=== PATIENT | female | born 1955 | race Caucasian/White ===

== ENCOUNTER → 2016-07-08 | Outpatient (CLI) | payer BC ==
[~2016-07-08] MED LIST: ATOR10TA66 PO; CATHETER FLUSH 10 ML SYR IV PRN; CIPR500T4 PO; HYDR-3812 PO; IOHEXOL 350 MG/ML 100 ML (OMNIPAQUE 350) VIAL IV ONE; NS 100 ML (IVPB) BAG IV ONE
--- OUTSIDE RECORDS SUMMARY | 2016-07-08 11:41 | XMS REPORT | Continuity of Care Document ---
Author Author [facility] Organization [facility] Address Unknown Phone Unavailable Allergies Active Description Code Type Severity Reaction Onset Reported/Identified Relationship to Patient Clinical Status Yes Penicillins [id number] Drug Allergy Unknown N/A 06/03/2015 Medications Problems Date Dx Coded Attending Type Code Diagnosis Diagnosed By 06/03/2015 PORSHA PARDO MD Ot K57.90 DVRTCLOS OF INTEST, PART UNSP, W/O PERF 06/03/2015 PORSHA PARDO MD Ot N13.2 HYDRONEPHROSIS WITH RENAL AND URETERAL C 06/03/2015 PORSHA PARDO MD Ot N28.9 DISORDER OF KIDNEY AND URETER, UNSPECIFI 11/24/2015 PORSHA PARDO MD Ot K57.90 DVRTCLOS OF INTEST, PART UNSP, W/O PERF 11/24/2015 PORSHA PARDO MD Ot N13.2 HYDRONEPHROSIS WITH RENAL AND URETERAL C 11/24/2015 PORSHA PARDO MD Ot N28.9 DISORDER OF KIDNEY AND URETER, UNSPECIFI 12/24/2015 DEREJE LUQUE MD Ot 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 Visit Date/Time Discharge Status Pt. Type Provider Facility Loc./Unit Complaint [id number] 06/03/2015 04:51:00 2015 06:24:00 DIS Emergency PORSHA PARDO MD [facility] ER LEFT SIDE BACK PAIN [id number] 07/08/2016 11:36:00 ACT Outpatient DEREJE LUQUE MD [facility] RAD BILAT AML,H/O STONES [id number] 12/22/2015 11:52:00 ACT Outpatient DEREJE LUQUE MD [facility] RAD BILATERAL AML
[2016-07-08 12:13] LABS: BLOOD UREA NITROGEN 17 MG/DL (7-18); BUN/CREATININE RATIO 22; CREATININE SERUM 0.76 MG/DL (0.60-1.30); GFR ESTIMATED > 60
--- NOTE | 2016-07-08 15:30 | Diagnostic Imaging Report ---
PROCEDURE: CT abdomen with and without contrast. TECHNIQUE: Multiple contiguous axial CT images of the abdomen were obtained prior to and after intravenous administration of iodinated contrast. INDICATION: Bilateral AML followup. History of stones. 100 mL of Omnipaque 350 is administered intravenously. FINDINGS: The lung bases appear clear. The liver, the gallbladder, the spleen, the pancreas, and the adrenal glands appear unremarkable. The kidneys have symmetric enhancement and contrast excretion. There is no hydronephrosis. The unenhanced phase demonstrate no kidney stones. There is a partially exophytic fat-containing mass in the right kidney measuring 1.6 cm in maximum dimension similar to 12/22/2015. In the left kidney, fat-containing lesion is also noted measuring 0.8 cm and is also unchanged. There are no other lesions identified. Again seen prominent enhancing component within the right renal mass mentioned above. The abdominal aorta is normal in caliber. No para-aortic significantly enlarged lymph nodes seen. The osseous structures appear grossly unremarkable. IMPRESSION: Stable bilateral fat-containing renal masses measuring 1.6 cm on the right and 0.8 cm in the left kidney suggestive of angiomyolipomas. A followup study in 12 months is suggested to recommend further stability given the enhancing components. Dictated by: Dictated on workstation # [id number]
== END ==
LOC: RAD 11:36
PROVIDERS: ATTEND Urology
DX: D17.71 Benign lipomatous neoplasm of kidney (principal)
CPT/HCPCS: 36415; 74170; 82565; 84520

== ENCOUNTER → 2016-10-27 | Outpatient (CLI) | payer BC ==
[~2016-10-27] MED LIST changes: -CATHETER FLUSH 10 ML SYR IV PRN; -IOHEXOL 350 MG/ML 100 ML (OMNIPAQUE 350) VIAL IV ONE; -NS 100 ML (IVPB) BAG IV ONE
--- NOTE | 2016-11-01 18:59 | Diagnostic Imaging Report ---
Bilateral screening mammogram. The current study was also evaluated with a Computer Aided Detection (CAD) system. INDICATION: Screening. No current complaints stated on the questionnaire. COMPARISON: 11/04/15 FINDINGS: The breasts are composed of heterogeneously dense parenchyma which may decrease mammographic sensitivity. No mass, architectural distortion or suspicious cluster of calcification is identified. Allowing for technique and positional differences, no suspicious change is seen. IMPRESSION: Dense breasts with no definite change. ACR BI-RADS Category 2: Benign findings. Result letter will be mailed to the patient. Note: At least 10% of breast cancer is not imaged by mammography. Dictated by: Dictated on workstation # [id number]
== END ==
LOC: RAD 09:39
PROVIDERS: ATTEND Nurse Practitioner Family
DX: Z12.31 Encounter for screening mammogram for malignant neoplasm of breast (principal)
CPT/HCPCS: 77067

== ENCOUNTER → 2017-07-26 | Outpatient (CLI) | payer BC ==
[~2017-07-26] MED LIST changes: +ACHD5005 PO; -HYDR-3812 PO
--- NOTE | 2017-07-26 16:47 | Diagnostic Imaging Report ---
PROCEDURE: CT abdomen and pelvis without contrast. TECHNIQUE: Multiple contiguous axial images were obtained through the abdomen and pelvis without the use of intravenous contrast. INDICATION: History of kidney stone. COMPARISON: Comparison with 07/08/2016. FINDINGS: Noncontrasted images show the lung bases to be clear. The kidneys show no evidence of calculi. No evidence of hydronephrosis. Complex fatty lesion off the cortex of the inferior portion of the right kidney is unchanged. Cyst off the cortex of the left kidney is also unchanged. Ureters are not distended. Bladder is decompressed. There are no calculi seen in the pelvis or bladder. There are multiple phleboliths. Liver appears normal. Gallbladder is normal. Bile ducts are not dilated. Pancreas and spleen are normal. Adrenal glands normal. Stomach appears normal. The small bowel is not distended. Colon shows normal stool and gas pattern. Appendix is normal. There is diverticulosis without evidence of diverticulitis. There are no pelvic masses. No bony lesion. IMPRESSION: 1. No evidence of renal calculi or obstruction. 2. Fatty cortical mass off the lower pole of the right kidney is stable likely representing angiomyolipoma. 3. The remainder of the abdomen appears normal. Dictated by: Dictated on workstation # [id number]
== END ==
LOC: RAD 14:08
PROVIDERS: ATTEND Urology
DX: D17.71 Benign lipomatous neoplasm of kidney (principal); Z87.442 Personal history of urinary calculi
CPT/HCPCS: 74176

== ENCOUNTER → 2018-10-17 | Outpatient (CLI) | payer MEDICARE ==
--- NOTE | 2018-10-17 14:38 | Diagnostic Imaging Report ---
PROCEDURE: CT abdomen and pelvis without contrast. TECHNIQUE: Multiple contiguous axial images were obtained through the abdomen and pelvis without the use of intravenous contrast. Auto Exposure Controls were utilized during the CT exam to meet ALARA standards for radiation dose reduction. INDICATION: Bilateral renal stones and right renal angiomyolipoma. Study is performed for followup. COMPARISON: Comparison is made with prior CT from 07/26/2017. FINDINGS: The lung bases are clear. No discrete liver mass is detected. The gallbladder is unremarkable. No biliary ductal dilatation is seen. The pancreas and spleen are unremarkable. No adrenal mass is detected. No renal calculi or evidence of hydronephrosis is seen. The mixed density cortical lesion in the lower pole of the right kidney is stable at approximately 15 mm. Tiny low-density cortical lesion in the left kidney is stable at approximately 6 mm. These may represent fatty lesions such as angiomyolipomas. Aorta is nonaneurysmal. The bowel loops are normal in caliber. Appendix is unremarkable. There is no ascites. Bladder is decompressed. IMPRESSION: 1. No evidence of nephrolithiasis or hydronephrosis. 2. Stable fatty cortical renal lesion, suggestive of angiomyolipoma when compared with prior examination from 07/26/2017. Dictated by: Dictated on workstation # [id number]
== END ==
LOC: RAD 14:06
PROVIDERS: ATTEND Urology
DX: D17.71 Benign lipomatous neoplasm of kidney (principal); N28.9 Disorder of kidney and ureter, unspecified
CPT/HCPCS: 74176

== ENCOUNTER 2018-12-06 05:37 | Outpatient (CLI) | payer MEDICARE ==
[~2018-12-06] VITALS: Ht 162.6 cm; Wt 57.2 kg
[2018-12-07] MEDS ORDERED: CHOL2000 PO (11:45)
[2018-12-07] MEDS ORDERED: ATOR10TA66 PO (11:45)
== END 2018-12-07 11:50 | disposition home or self-care (01) ==
LOC: PREOP 05:37
PROVIDERS: ATTEND Specialist
DX: Z01.818 Encounter for other preprocedural examination (principal)

== ENCOUNTER 2018-12-08 06:14 | Day surgery (SDC) | payer MEDICARE ==
[~2018-12-08] VITALS: Ht 162.6 cm; Wt 57.2 kg
[~2018-12-08 06:14] MED LIST changes: +CHOL2000 PO
[2018-12-08] MEDS ORDERED: TIMOLOL MALEATE 0.5% 5 ML (TIMOPTIC) BTL OU PRN (06:30)
[2018-12-08] MEDS ORDERED: LIDOCAINE PF 1% 2 ML AMP IR PRN (06:30)
[2018-12-08] MEDS ORDERED: POVIDONE (BETADINE) OPHTH SOLN 5% 30 ML OP ONE (06:30)
[2018-12-08] MEDS ORDERED: MOXIFLOXACIN OPHTH SOLN 5 MG/ML 0.3 ML SYRINGE OP ONE (06:30)
[2018-12-08 06:40] VITALS: BP 145/71
[2018-12-08] MEDS: TETRACAINE 0.5% OPHTH SOLN 4 ML BTL (SINGLE DOSE ONLY) OU PRN ×4 (06:49→07:10)
[2018-12-08] MEDS: CYCLOPENTOLATE 1% (CYCLOGYL) 2 ML DROPS OP SCH ×3 (06:59→07:10)
[2018-12-08] MEDS: PHENYLEPHRINE 10% OPHTH (NEO-SYN) 5 ML BTL OU SCH ×3 (06:59→07:10)
--- NOTE | 2018-12-08 07:03 | Ophthalmologist Pre-Op Note ---
Pre-Operative Progress Note H&P Reviewed The H&P was reviewed, patient examined and no changes noted. Date H&P Reviewed: Dec 08, 2018 Time H&P Reviewed: 07:03 Pre-Op Dx Cataract, Left Eye MICHAEL CASTILLO MD Dec 08, 2018 07:03
--- NOTE | 2018-12-08 07:24 | Ophthalmology Operative Report ---
Cataract removal/placement IOL PREOPERATIVE DIAGNOSIS: Cataract Left Eye POSTOPERATIVE DIAGNOSIS: Cataract Left Eye PROCEDURE: Cataract removal and placement of posterior chamber implant, left eye SURGEON: Ronnie Castillo ANESTHESIA: Topical with sedation COMPLICATIONS: None ESTIMATED BLOOD LOSS: Minimal DESCRIPTION OF PROCEDURE: After proper informed consent was obtained, the patient, a 63 female, was taken to the Operating Room and the left eye was anesthetized with tetracaine. The left eye was then prepped and draped in the usual manner. A wire lid speculum was placed. A paracentesis was made at the left hand position. Preservative free lidocaine was injected into the anterior chamber followed by viscoelastic. A clear corneal incision was made in the temporal position. A capsulorrhexis was preformed and the central nuclear and cortical material were removed. The posterior capsule was polished and an Zenon [id number] was placed into the capsular bag. The residual viscoelastic was aspirated and balanced saline solution was injected into the anterior chamber. Moxifloxacin was injected into the anterior chamber.20.5 The wound was checked and found to be water tight. The patient tolerated the procedure well without complications. RONNIE CASTILLO MD Dec 08, 2018 07:24
[2018-12-08] MEDS ORDERED: MIDAZOLAM 2 MG/2 ML (VERSED) VIAL ONE (07:49)
--- NOTE | 2018-12-08 07:53 | Ophthalmologist Pre-Op Note ---
Pre-Operative Progress Note H&P Reviewed The H&P was reviewed, patient examined and no changes noted. Date H&P Reviewed: Dec 08, 2018 Time H&P Reviewed: 07:53 Pre-Op Dx Cataract, Right Eye MICHAEL CASTILLO MD Dec 08, 2018 07:53
[2018-12-08] MEDS ORDERED: acetaZOLAMIDE ER 500 MG CAP (DIAMOX SEQUELS) PO ONE (08:00)
--- NOTE | 2018-12-08 08:12 | Ophthalmology Operative Report ---
Cataract removal/placement IOL PREOPERATIVE DIAGNOSIS: Cataract Right Eye POSTOPERATIVE DIAGNOSIS: Cataract Right Eye PROCEDURE: Cataract removal and placement of posterior chamber implant, right eye SURGEON: Ronnie Castillo ANESTHESIA: Topical with sedation COMPLICATIONS: None ESTIMATED BLOOD LOSS: Minimal DESCRIPTION OF PROCEDURE: After proper informed consent was obtained, the patient, a 63 female, was taken to the Operating Room and the right eye was anesthetized with tetracaine. The right eye was then prepped and draped in the usual manner. A wire lid speculum was placed. A paracentesis was made at the left hand position. Preservative free lidocaine was injected into the anterior chamber followed by viscoelastic. A clear corneal incision was made in the temporal position. A capsulorrhexis was preformed and the central nuclear and cortical material were removed. The posterior capsule was polished and Zenon 18.0 AU00T0 IOL was placed into the capsular bag. The residual viscoelastic was aspirated and balanced saline solution was injected into the anterior chamber. Moxifloxacin was injected into the anterior chamber. The wound was checked and found to be water tight. The patient tolerated the procedure well without complications. RONNIE CASTILLO MD Dec 08, 2018 08:12
[2018-12-08 08:25] VITALS: BP 135/89
--- NOTE | 2018-12-08 14:31 | Anesthesia-General Post-Op ---
MAC Patient Condition Mental Status/LOC: Same as Preop Cardiovascular: Satisfactory Nausea/Vomiting: Absent Respiratory: Satisfactory Pain: Controlled Complications: Absent Post Op Complications Complications None Follow Up Care/Instructions Patient Instructions None needed. Anesthesiology Discharge Order Discharge Order Patient is doing well, no complaints, stable vital signs, no apparent adverse anesthesia problems. No complications reported per nursing. MARCELLA CAM CRNA Dec 08, 2018 14:31
== END 2018-12-08 08:25 | disposition home or self-care (01) ==
LOC: SDC 06:14
PROVIDERS: ATTEND Specialist
DX: H25.11 Age-related nuclear cataract, right eye (principal); Z80.1 Family history of malignant neoplasm of trachea, bronchus and lung; Z80.52 Family history of malignant neoplasm of bladder; E78.00 Pure hypercholesterolemia, unspecified; Z85.828 Personal history of other malignant neoplasm of skin; Z79.899 Other long term (current) drug therapy

== ENCOUNTER 2018-12-26 05:39 | Outpatient (CLI) | payer MEDICARE ==
[~2018-12-26] VITALS: Ht 162.6 cm; Wt 57.2 kg
== END 2018-12-26 14:05 ==
LOC: PREOP 05:39
PROVIDERS: ATTEND Specialist
DX: Z01.818 Encounter for other preprocedural examination (principal); H25.89 Other age-related cataract; Z83.3 Family history of diabetes mellitus; Z80.8 Family history of malignant neoplasm of other organs or systems

== ENCOUNTER 2018-12-29 06:26 | Day surgery (SDC) | payer MEDICARE ==
[~2018-12-29] VITALS: Ht 162.6 cm; Wt 57.2 kg
[2018-12-29 06:30] VITALS: BP 134/74
[2018-12-29] MEDS ORDERED: MOXIFLOXACIN OPHTH SOLN 5 MG/ML 0.3 ML SYRINGE OP ONE (06:45)
[2018-12-29] MEDS ORDERED: LIDOCAINE PF 1% 2 ML AMP IR PRN (06:45)
[2018-12-29] MEDS ORDERED: POVIDONE (BETADINE) OPHTH SOLN 5% 30 ML OP ONE (06:45)
[2018-12-29] MEDS ORDERED: TIMOLOL MALEATE 0.5% 5 ML (TIMOPTIC) BTL OU PRN (06:45)
[2018-12-29] MEDS: TETRACAINE 0.5% OPHTH SOLN 4 ML BTL (SINGLE DOSE ONLY) OU PRN ×4 (06:55→07:18)
[2018-12-29] MEDS ORDERED: MIDAZOLAM 2 MG/2 ML (VERSED) VIAL ONE (07:01)
[2018-12-29] MEDS: PHENYLEPHRINE 10% OPHTH (NEO-SYN) 5 ML BTL OU SCH ×3 (07:07→07:18)
[2018-12-29] MEDS: CYCLOPENTOLATE 1% (CYCLOGYL) 2 ML DROPS OP SCH ×3 (07:07→07:18)
--- NOTE | 2018-12-29 07:47 | Ophthalmologist Pre-Op Note ---
Pre-Operative Progress Note H&P Reviewed The H&P was reviewed, patient examined and no changes noted. Date H&P Reviewed: Dec 29, 2018 Time H&P Reviewed: 07:47 Pre-Op Dx Cataract, Left Eye MICHAEL CASTILLO MD Dec 29, 2018 07:47
[2018-12-29] MEDS ORDERED: acetaZOLAMIDE ER 500 MG CAP (DIAMOX SEQUELS) PO ONE (08:00)
--- NOTE | 2018-12-29 08:16 | Ophthalmology Operative Report ---
Cataract removal/placement IOL PREOPERATIVE DIAGNOSIS: Cataract Left Eye POSTOPERATIVE DIAGNOSIS: Cataract Left Eye PROCEDURE: Cataract removal and placement of posterior chamber implant, left eye SURGEON: Ronnie Castillo ANESTHESIA: Topical with sedation COMPLICATIONS: None ESTIMATED BLOOD LOSS: Minimal DESCRIPTION OF PROCEDURE: After proper informed consent was obtained, the patient, a 63 female, was taken to the Operating Room and the left eye was anesthetized with tetracaine. The left eye was then prepped and draped in the usual manner. A wire lid speculum was placed. A paracentesis was made at the left hand position. Preservative free lidocaine was injected into the anterior chamber followed by viscoelastic. A clear corneal incision was made in the temporal position. A capsulorrhexis was preformed and the central nuclear and cortical material were removed. The posterior capsule was polished and an Zenon 17.5 AU00T0 was placed into the capsular bag. The residual viscoelastic was aspirated and balanced saline solution was injected into the anterior chamber. Moxifloxacin was injected into the anterior chamber. The wound was checked and found to be water tight. The patient tolerated the procedure well without complications. RONNIE CASTILLO MD Dec 29, 2018 08:16
[2018-12-29 08:28] VITALS: BP 119/58
--- NOTE | 2018-12-29 12:51 | Anesthesia-General Post-Op ---
MAC Patient Condition Mental Status/LOC: Same as Preop Cardiovascular: Satisfactory Nausea/Vomiting: Absent Respiratory: Satisfactory Pain: Controlled Complications: Absent Post Op Complications Complications None Follow Up Care/Instructions Patient Instructions None needed. Anesthesiology Discharge Order Discharge Order Patient was seen after the procedure and she was doing well, no complaints, stable vital signs, no apparent adverse anesthesia problems. CHRISTIAN GARLAND DO Dec 29, 2018 12:51
== END 2018-12-29 08:28 | disposition home or self-care (01) ==
LOC: SDC 06:26
PROVIDERS: ATTEND Specialist
DX: H25.12 Age-related nuclear cataract, left eye (principal); E78.5 Hyperlipidemia, unspecified; E78.00 Pure hypercholesterolemia, unspecified; C44.90 Unspecified malignant neoplasm of skin, unspecified; N20.0 Calculus of kidney; F32.9 Major depressive disorder, single episode, unspecified; Z88.0 Allergy status to penicillin; Z79.899 Other long term (current) drug therapy; Z83.3 Family history of diabetes mellitus; Z80.1 Family history of malignant neoplasm of trachea, bronchus and lung; Z80.52 Family history of malignant neoplasm of bladder

== ENCOUNTER → 2019-10-22 | Outpatient (CLI) | payer MEDICARE ==
--- NOTE | 2019-10-22 12:25 | Diagnostic Imaging Report ---
PROCEDURE: CT urinary tract, rule out kidney stone. TECHNIQUE: Multiple contiguous axial images were obtained through the abdomen and pelvis without the use of intravenous contrast. Auto Exposure Controls were utilized during the CT exam to meet ALARA standards for radiation dose reduction. INDICATION: Bilateral renal stones. Correlation is made with prior CT from 10/17/2018. Lung bases remain clear. The liver is unremarkable. Gallbladder appears to be contracted. No biliary duct dilatation is detected. The pancreas and spleen are unremarkable. No adrenal mass is detected. A mixed density cortical lesion lower pole right kidney is stable at 15 mm. Fatty lesion in the mid to upper pole left kidney is approximately 7 to 8 mm compared with 6 mm. No calculi are detected. Is no hydronephrosis. No ureteral or bladder calculi are detected. Aorta is non-aneurysmal. Bowel loops are unremarkable. Appendix is visualized and unremarkable. There is no obstruction. No free fluid or fluid collection is seen. The uterus is unremarkable. The bony structures and nonacute. IMPRESSION: 1. No evidence of nephrolithiasis or hydronephrosis. 2. Stable mixed density right renal cortical lesion since one year earlier. The left cortical low-density lesion may be minimally larger however this remains most consistent with an angiomyolipoma. Continued follow-up is recommended. Dictated by: Dictated on workstation # [id number]
== END ==
LOC: RAD 11:45
PROVIDERS: ATTEND Urology
DX: N20.0 Calculus of kidney (principal); N28.9 Disorder of kidney and ureter, unspecified
CPT/HCPCS: 74176

== ENCOUNTER → 2021-10-29 | Outpatient (CLI) | payer MEDICARE ==
[~2021-10-29] MED LIST changes: -CIPR500T4 PO; +CIPR500T5 PO
--- NOTE | 2021-10-29 10:28 | Diagnostic Imaging Report ---
EXAMINATION: CT abdomen and pelvis without contrast. TECHNIQUE: Multiple contiguous axial images were obtained through the abdomen and pelvis without the use of intravenous contrast. All CT scans use one or more of the following dose optimizing techniques: automated exposure control, MA and/or KvP adjustment based on patient size and exam type or iterative reconstruction. HISTORY: Renal stone followup COMPARISON: 10/22/2019 FINDINGS: Lung bases: The lung bases are clear. Solid organs: The liver is normal. The gallbladder is normal. There is no biliary ductal dilation. Pancreas is normal. Spleen is normal. Adrenal glands are normal. Stable bilateral renal lesions measuring up to 1.4 cm on the right are unchanged and demonstrates imaging characteristics compatible with angiomyolipoma. No visualized renal calculus or hydronephrosis. Bowel: The stomach and small bowel are normal without obstruction. There is scattered colonic diverticulosis. The appendix is normal. Peritoneum: There is no intraperitoneal free fluid or free air. No suspicious lymphadenopathy. Vasculature: Normal without aneurysm. Musculoskeletal: Degenerative changes of the spine without suspicious osseous lesion or compression fracture. Pelvis: The uterus and adnexa are normal. The urinary bladder is normal. IMPRESSION: 1. No visualized renal calculus or hydronephrosis. 2. Stable size and appearance of bilateral renal lesions with imaging characteristics compatible with angiomyolipomas. 3. Colonic diverticulosis. Dictated by: Dictated on workstation # [id number]
== END ==
LOC: RAD 09:26
PROVIDERS: ATTEND Urology
DX: K57.30 Diverticulosis of large intestine without perforation or abscess without bleeding (principal); N20.0 Calculus of kidney; C92.00 Acute myeloblastic leukemia, not having achieved remission
CPT/HCPCS: 74176